=== PATIENT | female | born 1995 | race Caucasian/White ===

== ENCOUNTER 2023-09-10 13:20 | Outpatient (CLI) | payer MEDICAID, SELFPAY ==
--- NOTE | 2023-09-10 13:25 | CRLHL7_ITS ---
For Patients: As a result of the Century Cures Act, medical imaging exams and procedure reports are released immediately into your electronic medical record. You may view this report before your referring provider. If you have questions, please contact your health care provider. INDICATION: Vaginal bleeding. female with gestational age of 33 weeks 4 days. TECHNIQUE: Ultrasound OB pelvis transabdominal. Real-time whitney-scale imaging of the fetus was performed as well as color Doppler and spectral Doppler analysis of the umbilical artery. COMPARISON: None available. FINDINGS: Intrauterine gestation: Present. cardiac activity: 130 BPM. Presentation: Cephalic. Amniotic fluid volume: Borderline increased amniotic fluid volume with single deepest pocket measuring 8.2 cm. Amniotic fluid index measures 21.2 cm. Placenta: Anterior. Limited evaluation of the placenta is unremarkable. Cervix: Not measured. Please note that this examination is not a detailed anatomic survey. IMPRESSION.: Viable single intrauterine gestation with heart rate of 130 beats per minute. Borderline polyhydramnios as described. Dictated by Dana Edge MD @ 09/10/2023 2:37:06 PM (Electronically Signed)
[2023-09-10 13:39] VITALS: BP 115/71; PULSE 67; TEMP 36.6
[2023-09-10] MEDS: NIFEdipine 10 MG CAPSULE PO ×2 (14:36→14:58)
[2023-09-10] MEDS: BETAMETHASONE SOD PHOS/ACETATE 6 MG/ML ML 12 MG IM (14:37)
[2023-09-10 14:45] LABS: Yeast No Yeast Seen (None Seen)
[2023-09-10 14:46] LABS: Clue Cells <20% Clue Cells Seen (None Seen); Trichomonas No Trichomonas Seen (None Seen)
--- NOTE | 2023-09-10 14:47 | P.OBT_ITS ---
History of Present Illness History of Present Illness Date Seen: 09/10/23 History of Present Illness: 28 year old at 33 4/7 weeks gestation by certain LMP, JULIETTE 10/25/23, presents with vaginal bleeding. The patient was seen for transfer of obstetric care in the [facility] by physician's chemistry research assistant, Stacy Whaley. At that time, the patient complained of bright red vaginal bleeding. She had also had bright red vaginal bleeding last evening and was evaluated at [facility]. She states that they did a swab for AmniSure, but did not send it because the swab was bloody. She was monitored and subsequently sent home. She tells me that she has had intermittent brown spotting throughout the , and was told by a physician in [place] that she likely had a friable cervix. She does mention that she had intercourse yesterday morning. She is aware of contractions, she describes them as tightening without any real pattern. She describes the intensity as mild. Her fetus is active. Her past obstetric records were reviewed. This has been complicated by hyperemesis gravidarum. She gets regular IV fluid hydration and IV Zofran through a midline IV placed in her right arm. She had a normal growth ultrasound on 09/06/2023, with normal amniotic fluid volume. Estimated weight was in the sixtieth percentile. Growth ultrasounds are done regularly due to extended steroid use during the secondary to the hyperemesis. She also was diagnosed with gestational diabetes. 1 hour glucose screen was 152. 3 hour GTT values:100/157/165/106. She states that her blood sugars have been low, not high. She has also recently been diagnosed with yeast vaginitis, and completed two seven-day courses of Monistat cream. Baby moving naturally: Yes Bleeding: Yes Contractions: Yes Leaking fluid: No Discharge: No Heartburn: No Back pain: No Meds Home Medications and Allergies Home Medications Medication Instructions Recorded Confirmed Type ondansetron HCl 2 mg/mL 8 mg IM ONCE 09/10/23 09/10/23 History intravenous solution Allergies Allergy/AdvReac Type Severity Reaction Status Date / Time amitriptyline AdvReac Severe Depression Verified 09/10/23 12:50 PFSH Social History What is your current living situation?: I presently have a place to live Problems where you live: declined to answer In the past 12 months, utilities in danger of being shut off: no In past 12 months, lack of transportation kept you from medical appts, meetings, work, or getting things needed for daily living: no In the past 12 mos, have been you worried that your food would run out before you had money to buy more?: sometimes true In the past 12 mos, the food you bought just didn't last and you didn't have money to buy more?: sometimes true Smoking Status: Never smoker How often does anyone, including family, friends and others, physically hurt you : never How often does anyone, including family, friends and others, insult or talk down to you: sometimes How often does anyone, including family, friends and others, threaten you with harm: never How often does anyone, including family, friends and others, scream or curse at you: never Little interest or pleasure in doing things: several days Feeling down, depressed, or hopeless: several days History History 3 Elective abortions Para 2 Spontaneous abortions Hx # Term Pregnancies Ectopic pregnancies Hx # Pregnancies Multiple births Number of Living Children 2 Past Pregnancies Del. Date GA/Weeks Outcome Route wt Inf Gender Labor Lgth Anesthesia Location Provider Compli 10/14/13 41 live - full term vaginal delivery 6 lb 7 oz Female 5hrs none [place] other 07/22/21 37 live - full term vaginal delivery 6 lb 8 oz Femal e 6hrs intravenous analgesics [place] other Delivery Date: 10/14/13 Last Updated by: Ann Martin ~ [employer], [employer] pt had hyperemesis Delivery Date: 07/22/21 Last Updated by: Ann Martin ~ [employer], T[employer] pt had hyperemesis OB - H&P: Exam Physical Exam Vital signs: Temp Pulse BP 98 F 67 115/71 09/10/23 13:39 09/10/23 13:39 09/10/23 13:39 Constitutional Constitutional: no acute distress Routine HEENT Exam Head: Present normal inspection Routine Neck Exam Neck: Present full ROM Routine Respiratory Exam Respiratory: Present CTA bilaterally Routine Cardiovascular Exam Cardiovascular: RRR Routine Abdominal Exam Abdominal: Present soft; Absent tenderness Comments: Vertex presentation by Ruth Routine Exam External: Present normal external exam Comments: Sterile speculum exam: No fluid or blood noted in the vaginal vault. Clear mucus noted at the external cervical os. Cervix appears multiparous, no lesions. Bimanual exam: Cervix midposition, 2 cm dilated, approximately 50% effaced, vertex minus two station. Detailed Labor and Delivery Exam Patient Gravid: Yes Dilation (cm): 2 Effacement (%): 50 Cervix position: mid Consistency: medium Tachysystole: No Contraction intensity: Mild Fetus (Single) Station: -2 Heart Rate Baseline: 130 Monitor Accelerations: Present Monitor Decelerations: None Brick Baker Variability: Moderate (6-25) Routine Extremities Exam Extremities: Present normal inspection Results Labs Blood type a, Rh negative, RhoGAM reportedly administered on 09/06/2023, hemoglobin 14.3 on 03/06/2023, 11.0 on 08/06/2023, negative urine culture, Pap NIL, +HPV 10/27/2022, gonorrhea chlamydia screens negative, rubella immune, RPR nonreactive, hepatitis-B surface antigen nonreactive, HIV negative, varicella immune, 1 hour glucose screen 152, 3 hour GTT 100/157/165/106. Labs Laboratory Tests 09/10/23 09/10/23 Range/Units 14:40 14:22 WBC Pending RBC Pending Hgb Pending Hct Pending MCV Pending MCH Pending MCHC Pending Plt Count Pending Neut % (Auto) Pending Lymph % (Auto) Pending [place] % (Auto) Pending Eos % (Auto) Pending Baso % (Auto) Pending Neut # (Auto) Pending Lymph # (Auto) Pending [place] # (Auto) Pending Eos # (Auto) Pending Baso # (Auto) Pending Vaginal Trichomonas No Trichomonas Seen (None Seen) Vaginal Yeast No Yeast Seen (None Seen) Vaginal Clue Cells <20% Clue Cells Seen (None Seen) Group B Strep DNA Pending Ultrasound Ultrasound Impression: [address] [address] Diagnostic Imaging Report Patient: Juliet Vigil MR#: [id number] : 1995 Acct:[id number] Loc: [id number] Service Date: 09/10/[address]: Katya Kaur M.D. Ordering Physician: Katya Kaur M.D. Date of Service: 09/10/23 Procedure(s): US OB limited Accession Number(s): [id number] cc: Provider,Not a Local; Katya Kaur M.D.~ For Patients: As a result of the Cures Act, medical imaging exams and procedure reports are released immediately into your electronic medical record. You may view this report before your referring provider. If you have questions, please contact your health care provider. INDICATION: Vaginal bleeding. female with gestational age of 33 weeks 4 days. TECHNIQUE: Ultrasound OB pelvis transabdominal. Real-time whitney-scale imaging of the fetus was performed as well as color Doppler and spectral Doppler analysis of the umbilical artery. COMPARISON: None available. FINDINGS: Intrauterine gestation: Present. cardiac activity: 130 BPM. Presentation: Cephalic. Amniotic fluid volume: Borderline increased amniotic fluid volume with single deepest pocket measuring 8.2 cm. Amniotic fluid index measures 21.2 cm. Placenta: Anterior. Limited evaluation of the placenta is unremarkable. Cervix: Not measured. Please note that this examination is not a detailed anatomic survey. IMPRESSION.: Viable single intrauterine gestation with heart rate of 130 beats per minute. Borderline polyhydramnios as described. Dictated by Dana Edge MD @ 09/10/2023 2:37:06 PM (Electronically Signed) Assessment and Plan Assessment and plan (1) with third trimester bleeding: Status: Acute (2) labor: Status: Acute (3) Hyperemesis affecting , antepartum: Problem comment: IV fluids twice weekly with IV Zofran, prolonged prednisone treatment Status: Acute Plan 1. The patient has received IV fluid hydration and two doses of nifedipine 10 mg orally. 2. Betamethasone mg IM was administered. The patient understands that she should have another dose in 24 hours. 3. GBS swab was obtained, and is pending. 4. Wet prep was obtained, and is pending. 5. The patient has cervical change, in association with cervical dilation and bloody show. This is worrisome for labor. [facility] does not have a intensive care unit, and therefore transfer to a tertiary medical center is indicated for further evaluation and treatment. I spoke with Dr. Thomason at [facility], who is willing to accept care. The patient will be transferred to [place] by ambulance to [facility].
[2023-09-10 14:52] LABS: Basophils Percent Auto 0.1 % (0.0-3.0); Eosinophils Percent Auto 0.4 % (0.0-7.0); Hematocrit 34.5 % (33.0-51.0); Hemoglobin* 11.5 gm/dL (12.0-16.0); Immature Granulocytes Pct Auto 0.9 %; Lymphocytes Percent Auto 16.4 % (20-44); Mean Corpuscular HGB Conc 33 gm/dL (32-36); Mean Corpuscular Hemoglobin 30 pg (26-34); Mean Corpuscular Volume 91 fL (80-100); Monocytes Percent Auto 5.6 % (0.0-11.0); Neutrophils Percent Auto 76.6 % (42.0-72.0); Platelet Count* 312 K/uL (140-440); RDW Coefficient of Variation % 13.1 % (11.5-15.5)
[2023-09-10 15:10] LABS: Slide Review Reflex No
[2023-09-10 15:26] VITALS: BP 114/64; PULSE 98
--- NOTE | 2023-09-10 16:22 | PC.OBNST ---
NST Note NST Note Start: 09/10/23 13:26 Freq: ONCE Status: Discharge Protocol: Document 09/10/23 16:20 JULIET (Rec: 09/10/23 16:22 JULIET [id number]) NST Note 3 Para (# of births) 2 EDC 10/25/23 Gestational Age In Weeks & Days 33 Weeks & 4 Days High Risk Factors Diabetes - Gestational Insulin Patient Presented with Complaint(s) of Vaginal bleeding Reactive Yes Appropriate for Gestational Age Yes RN Anjana Lobato, RN Date 09/10/23 Reactive Yes Appropriate for Gestational Age Yes MANA Powers, MANAC Date 09/10/23 OB NST charge Yes Complete NST Note via Write Note Yes The provider's electronic signature indicates the NST is reactive/appropriate for gestational age. *Note to provider: If an addendum is required, open the patient's chart and click on the note under the Nurse/Allied Health tab.
[2023-09-11 11:58] LABS: Strep B DNA Probe Negative (Negative)
[2023-09-11 12:19] LABS: Strep B Susceptibility Needed? No
== END 2023-09-10 15:33 | disposition home or self-care (01) ==
LOC: OB OUT 13:21 → OB 13:22
PROVIDERS: Visit Provider Obstetrics & Gynecology
DX: O46.93 Antepartum hemorrhage, unspecified, third trimester (principal); Z3A.33 33 weeks gestation of pregnancy
CPT/HCPCS: 36415; 59025; 76815; 85025; 86850; 86870; 86880; 86900; 86901; 87081; 87210; 87653; G0463; A9270; J0702

== ENCOUNTER 2023-09-10 15:35 | Outpatient (CLI) | payer MEDICAID, SELFPAY | END 2023-09-10 15:36 | disposition home or self-care (01) | LOC: AMB 09-26 01:08 | PROVIDERS: Visit Provider Emergency Medicine | DX: O60.03 Preterm labor without delivery, third trimester (principal); Z3A.33 33 weeks gestation of pregnancy | CPT/HCPCS: A0425; A0428 ==

== ENCOUNTER 2025-05-26 08:53 | Emergency (ER) | payer MEDICAID, SELFPAY ==
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
[2025-05-26 08:59] VITALS: BP 100/60; PULSE 69; RESP 16; TEMP 36.8; O2SAT 97; BMI 21.8
--- NOTE | 2025-05-26 09:18 | ED_ITS ---
HPI - Abdominal Pain General Time Seen by Provider: 09:21 Date Seen: 05/26/25 Chief Complaint: Abdominal Pain Stated Complaint: gallstones Time Seen by Provider: 05/26/25 09:18 Source: patient, RN notes reviewed and old records reviewed Mode of arrival: ambulatory Limitations: no limitations History of Present Illness HPI narrative: This 30-year-old female is coming into the ER today with ongoing abdominal discomfort. She is having abdominal pain. She states she was diagnosed with gallstones and inflammation in the intestines yesterday. Impression of her CT from [place] [address] ED visit is below. She notes that she is had night sweats for months at night, has not noted fevers. She has had intermittent problems with nausea and vomiting for months, has had diarrhea issues for years. She states her symptoms really did get worse after the delivery of her last son. She has had a tubal ligation and LEEP in October. She was in the ED yesterday because of her symptoms. She is still getting her menstrual cycles regularly. Denies any history narcotic use or illicit substance use. She states that she did not get any medicines yesterday, her discharge recommended Tylenol and ibuprofen. She was recommended to follow up in 3-5 days. She has never had a colonoscopy. She is not aware of any family history of inflammatory bowel disease. She states someone has told her in the past that she had irritable bowel syndrome. She notes no blood in stool, melena at this time. She states there has been times in there has maybe been a little blood in stool but it is nothing consistent or concerning. She will note mucus in her stools at times. Patient notes generalized abdominal pain usually. IMPRESSION: 1. Short-segment mural hyperenhancement of the nondilated fluid-filled terminal ileum consistent with nonspecific terminal ileitis. 2. No other findings to explain the history of acute onset nonfocal abdominal pain as stated in the indication for the exam. 3. Suspected (possible) cholelithiasis. Otherwise unremarkable gallbladder. No sign of acute cholecystitis. Normal appendix. Dominant right ovarian follicle, for which no further workup is indicated. Small volume pelvic free fluid within physiologic limits of normal. Related Data Home Medications ?Medication ?Instructions ?Recorded ?Confirmed No Known Home Medications 05/26/2505/04 Allergies Allergy/AdvReac Type Severity Reaction Status Date / Time amitriptyline AdvReac Severe Depression Verified 10/01/23 12:35 Review of Systems Status of ROS Reports: 6 or more systems reviewed and unremarkable except as noted in History and below PFSH PFS Social History What is your current living situation?: I presently have a place to live Problems where you live: declined to answer In the past 12 months, utilities in danger of being shut off: no In past 12 months, lack of transportation kept you from medical appts, meetings, work, or getting things needed for daily living: no In the past 12 mos, have been you worried that your food would run out before you had money to buy more?: sometimes true In the past 12 mos, the food you bought just didn't last and you didn't have money to buy more?: sometimes true Smoking Status: Never smoker Do you use any of these nicotine containing products: None Second hand tobacco smoke exposure: No How often do you have a drink containing alcohol: never AUDIT-C Alcohol total score: 0 Non-prescribed substance use: marijuana (any form) Non-prescribed substance use details: for pain last used 05/25/2025 before bed How often does anyone, including family, friends and others, physically hurt you : never How often does anyone, including family, friends and others, insult or talk down to you: sometimes How often does anyone, including family, friends and others, threaten you with harm: never How often does anyone, including family, friends and others, scream or curse at you: never service: No Health Related Social Needs: food insecurity (Z59.41) and Other personal risk factors, not elsewhere classified (Z91.89) Exam Const: Vital Signs, click to edit/add: Vital Signs - 24 hr 05/26/25 08:59 Temperature 98.3 F Pulse Rate [Pulse Oximeter] 69 Respiratory Rate 16 Blood Pressure [Ri ght Upper Arm] 100/60 Pulse Oximetry 97 Oxygen Delivery Me thod Room Air This 30-year-old female is alert, interactive, no apparent distress, lying in the bed in exam room to. Sclera clear face atraumatic, speech normal. Lungs clear, no wheezing or crackles, no tachypnea. CV regular rate and rhythm, no murmur. Abdomen has normal bowel sounds, is soft, flat, not distended. She really has no rebound or guarding, no organomegaly, no masses noted. Documenting provider has reviewed patient's vital signs: yes Course Course ED Course: Looking at her workup yesterday with a terminal ileitis in her examination today combined with her history, suspect this patient may have inflammatory bowel disease. Will recheck labs today, give her some IV fluids, try some IV Toradol. If her labs are reassuring as far as white count, no changes in chemistries, doubt that gallbladder issues are her problem. She may need colonoscopy, will see where her inflammatory markers are. At this time her abdominal exam is reassuring, she does have terminal ileitis on her CT scan. Do not think we need to repeat any imaging here today based on clinical examination but will also look at labs to make sure they are stable. Reevaluation(s) Time of Reevaluation #1: 10:40 Reevaluation #1: Outside of patient sed rate, her labs are reassuring. Her hemoglobin yesterday was 12.1. Her urinalysis only showed 3-5 red blood cells and had many epithelial cells, believe this likely to be contamination. Do not feel we need a repeat urinalysis, do not feel we need any repeat imaging at this time. She would like to proceed with colonoscopy and EGD. She wants to follow-up in [facility]. We will try to get a follow-up appointment with primary care for about 2 weeks out, this should give ample time for the colonoscopy and EGD to be done. Consultations Consultation #1: Did speak with Dr. Cruz general surgery on-call. Reviewed the case with her. She does agree that doing both EGD and colonoscopy would be appropriate next step. She does feel that the patient certainly can be scheduled through our system. She does agree with no narcotic pain management in the interim. She also would like patient to get scheduled to have a follow-up with her primary care after her scopes are done so she has a medical home to follow-up with. Time: 10:27 Vital Signs Vital signs: Initial Vital Signs Temperature 98.3 F 05/26/25 08:59 Temperature Source Temporal Artery Scan 05/26/25 08:59 Pulse Rate 69 05/26/25 08:59 Respiratory Rate 16 05/26/25 08:59 Blood Pressure 100/60 09/24/25 08:59 Blood Pressure Mean 73 05/26/25 08:59 Blood Pressure Position Sitting 05/26/25 08:59 Pulse Oximetry 97 05/26/25 08:59 Oxygen Delivery Method Room Air 05/26/25 08:59 Vital Signs Temperature 98.3 F 05/26/25 08:59 Pulse Rate 69 05/26/25 08:59 Respiratory Rate 16 05/26/25 08:59 Blood Pressure 100/60 05/26/25 08:59 Pulse Oximetry 97 05/26/25 08:59 Oxygen Delivery Method Room Air 05/26/25 08:59 Temperature 98.3 F 05/26/25 08:59 Pulse Rate 69 05/26/25 08:59 Respiratory Rate 16 05/26/25 08:59 Blood Pressure 100/60 05/26/25 08:59 Pulse Oximetry 97 05/26/25 08:59 Oxygen Delivery Method Room Air 05/26/25 08:59 Medications Administered Medications: Discontinued Medications Generic Name Dose Route Start Last Admin Trade Name Álvaro PRN Reason Stop Dose Admin Sodium Chloride 1,000 mls @ 500 mls/hr 05/26/25 09:30 05/26/25 10:01 0.9 % Sodium Chloride 1000 Ml IV 05/26/25 11:29 500 mls/hr .Q2H TERESA Administration Ketorolac Tromethamine 15 mg 05/26/25 09:30 05/26/25 09:44 Ketorolac 15 Mg/Ml Inj IVP 05/26/25 09:31 15 mg ONCE ONE Administration MDM - Abdominal Pain Lab Data Attestation: I reviewed the patient's lab results. Labs: Lab Results 05/26/25 Range/Units Unknown WBC 6.06 (4.50-11.00) K/uL RBC 4.26 (4.00-5.20) m/uL Hgb 11.7 L (12.0-16.0) gm/dL Hct 36.1 (33.0-51.0) % MCV 85 (80-100) fL MCH 28 (26-34) pg MCHC 32 (32-36) gm/dL RDW Coeff of Jannette 13.6 (11.5-15.5) % Plt Count 347 (140-440) K/uL Neut % (Auto) 64.3 (42.0-72.0) % Lymph % (Auto) 26.6 (20-44) % [place] % (Auto) 7.6 (0.0-11.0) % Eos % (Auto) 1.0 (0.0-7.0) % Baso % (Auto) 0.3 (0.0-3.0) % Neut # (Auto) 3.90 (1.7-7.0) K/uL Lymph # (Auto) 1.61 (0.90-2.90) K/uL [place] # (Auto) 0.50 (0.00-0.90) K/UL Eos # (Auto) 0.06 (0.00-0.50) K/uL Baso # (Auto) 0.02 (0.00-0.30) K/uL Abs Immat Gran (auto) 0.01 (0.00-0.30) K/uL Imm/Tot Granulo (auto) 0.2 % ESR 5 (2-20) mm/hr Sodium 137 (135-149) mmol/L Potassium 4.4 (3.6-5.1) mmol/L Chloride 109 (96-114) mmol/L Carbon Dioxide 24 (20-32) mmol/L Anion Gap 4 L (7-15) mEq/L BUN 10 (5-24) mg/dL Creatinine 0.6 (0.5-1.5) mg/dL Estimated Creat Clear 108.43 Estimated GFR 124 ml/min Glucose 97 (60-115) mg/dL Lactate 0.6 (0.5-1.9) mmol/L Calcium 8.6 (8.4-10.6) mg/dL Total Bilirubin 0.4 (0.1-1.5) mg/dL Direct Bilirubin 0.1 (0.0-0.5) mg/dL AST 22 (12-35) U/L ALT 11 (4-35) U/L Alkaline Phosphatase 40 (40-150) U/L C-Reactive Protein < 0.5 L (0.5-1.0) mg/dL Total Protein 6.7 (6.0-8.3) g/dL Albumin 4.0 (3.3-5.0) g/dL Lipase 90 (23-300) U/L Discharge Plan Discharge Clinical Impression: Abdominal pain Qualifiers: Abdominal location: generalized Qualified Code(s): R10.84 - Generalized abdomin al pain Terminal ileitis of small intestine Qualifiers: Digestive disease complication type: without complication Qualified Code(s): K50.00 - Crohn's disease of small intestine without complications Patient Disposition: Home, Self-Care Condition: Stable Instructions: Abdominal Pain (ED) Additional Instructions: Follow up appointment is scheduled with Dr. Sher at the [facility] on 06/07 with a 10:30am appointment time. Please arrive at 10:15am to complete paperwork. If you have any questions or need to reschedule, please call [phone]. (He is part of the [facility] system) [facility] [address] [place] [address] You will be contacted by endoscopy clinic to get scheduled for the EGD and colonoscopy. Can use Tylenol 1000 mg 3 times a day and ibuprofen per bottle directions as needed for pain management. Activity Level: Activity as Tolerated Prescriptions: No Action No Known Home Medications Follow Up/Referrals: Provider,Not a Local [Primary Care Provider, Family Practice] Stand Alone Forms: App in the [employer] Info Instructions
--- OUTSIDE RECORDS SUMMARY | 2025-05-26 09:52 | XMS_ITS | Encounter Summary ---
Author Organization [facility] Address [address] [place] [address] Care Team Providers Care Pot Builder Name Role Phone Alison Wolf APRN, C.N.P., D.N.P. P [facility] Care Provider Reason for Visit * Reason Onset Date Comments Blood in Urine 05/25/2025 Encounter Details Date Type Department Care Team (Late st Contact Info) Description 05/25/2025 Nurse Triage Department of Family Medicine, [facility], in [place], [place] [address] [place] [id number] Magaly Alba RRodolfo [address] [place] [phone] Blood in Urine Social History Tobacco Use Types Packs/Day Years Used Date Smoking Tobacco: Never Passive Smoke Exposure: Never Smokeless Tobacco: Never Alcohol Use Standard Drinks/Week Comments Not Currently 0 (1 standard drink = 0.6 oz pur e alcohol) [facility] Utilities Answer Date Recorded In the past 12 months has [employer], oil, or water [employer] threatened to shut off services in your home? No 10/12/2024 Humiliation, Afraid, Rape, and Kick questionnair e Answer Date Recorded Within the last year, have y ou been afraid of your partner or ex-partner? No 09/11/2023 Within the last year, have y ou been humiliated or emotionally abused in other ways by your partner or ex-partner? No Within the last year, have y ou been kicked, hit, slapped, or otherwise physically hurt by your partner or ex-partner? No 09/11/2023 Within the last year, have y ou been raped or forced to have any kind of sexual activity by your partner or ex-partner? No 09/11/2023 Hunger Vital Sign Answer Date Recorded Within the past 12 months, y ou worried that your food would run out before you got the money to buy more. Never true 10/12/19 25 Within the past 12 months, t he food you bought just didn't last and you didn't have money to get more. Never true 10/12/2024 PRAPARE - Transportation Answer Date Re corded In the past 12 months, has l ack of transportation kept you from medical appointments or from getting medications? No 10/03 In the past 12 months, has l ack of transportation kept you from meetings, work, or from getting things needed for daily living? No 10/12/2024 Depression Answer Date Recor ded PHQ-9 Total Score (max 27) 19 10/12 Housing Stability Answer Date Recorded What is your living situation today? I have a [facility] place to live 10/12/2024 Education Answer Date Recorded What is the highest level of school you have completed or the highest degree you have received? 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 - 05/25/2025 9:10 AM CDT Chief Complaint / Reason for Call Patient is a 30 y.o. female calling regarding Blood in Urine. Assessment Concern: Juliet is calling for an appointment in [place] today, since she in town for work. She has noticed that she is peeing blood, but it is light and pink in the toilet and on the Toilet paper. She has pain in her stomach. She had a surgery in October, and had a LEEP procedure, and ever since then she has had issues. 6.5/10 pain when sitting, standing pain is 8/10. She will feel faint sometimes due to the pain. Present for: 24 hours. Calling to request: appointment The recommended disposition is See a health care provider within 24 hours. Patient provided education on options if no clinic access is available within the recommended timeframe to include local Urgent Care or Emergency Department. Patient verbalizes understanding of this. Patient provided education on options if no clinic access is available within the recommended timeframe to include local Urgent Care or Emergency Department. Patient verbalizes understanding of this. 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 Reason for Disposition Blood in urine (Exception: Could be normal menstrual bleeding.) Side (flank) or back pain present Protocols used: Urine - Blood In-Adult- Care Advice Patient/Caregiver understands and will follow care advice?: Yes, able to teach back [facility] Magaly Alfaro May 25, 2025 09:18 AM Care Advice DRINK EXTRA FLUIDS: * Drink extra fluids. * Drink 8 to 10 cups (1,800 to 2,400 ml) of liquids a day. * Reason: This will water-down your urine and make it less painful to pass. It will also help wash out any germs that may be in your bladder. documented in this encounter Plan of Treatment Upcoming Encounters Date Type Department Care Team (Late st Contact Info) Description 06/16/2025 2:30 PM CDT Comprehensive Visit Department of Family Medicine, [facility], in [place], [place] [address] [phone] Pricila Jernigan APRN, C.N.P., D.N.P. 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 [address] [place] [phone] PCP - General 02/07/24 documented as of this encounter
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
[2025-05-26 09:56] LABS: Lactate* 0.6 mmol/L (0.5-1.9)
[2025-05-26 09:57] LABS: Hematocrit* 36.1 % (33.0-51.0); Hemoglobin* 11.7 gm/dL (12.0-16.0); Immature Granulocytes Abs Auto 0.01 K/uL (0.00-0.30); Immature Granulocytes Pct Auto 0.2 %; Lymphocytes Absolute Auto 1.61 K/uL (0.90-2.90); Mean Corpuscular HGB Conc 32 gm/dL (32-36); Mean Corpuscular Hemoglobin 28 pg (26-34); Mean Corpuscular Volume 85 fL (80-100); RDW Coefficient of Variation % 13.6 % (11.5-15.5); Red Blood Count* 4.26 m/uL (4.00-5.20); White Blood Count* 6.06 K/uL (4.50-11.00)
[2025-05-26 09:58] LABS: Slide Review Reflex No
[2025-05-26 10:13] LABS: Albumin* 4.0 g/dL (3.3-5.0); Chloride* 109 mmol/L (96-114); Sodium* 137 mmol/L (135-149)
[2025-05-26 10:14] LABS: Potassium* 4.4 mmol/L (3.6-5.1)
[2025-05-26 10:16] LABS: Alanine Aminotransferase* 11 U/L (4-35); Alkaline Phosphatase* 40 U/L (40-150); Anion Gap 4 mEq/L (7-15); Aspartate Amino Transferase* 22 U/L (12-35); Bilirubin Direct* 0.1 mg/dL (0.0-0.5); Bilirubin Total* 0.4 mg/dL (0.1-1.5); Blood Urea Nitrogen* 10 mg/dL (5-24); Calcium* 8.6 mg/dL (8.4-10.6); Carbon Dioxide* 24 mmol/L (20-32); Creatinine* 0.6 mg/dL (0.5-1.5); Est. Creatinine Clearance* 108.43; Estimated Glomerular Filt Rate 124 ml/min; Glucose* 97 mg/dL (60-115); Total Protein* 6.7 g/dL (6.0-8.3)
[2025-05-26 11:01] LABS: Erythrocyte SedimentationRate* 5 mm/hr (2-20)
== END 2025-05-26 11:51 | disposition home or self-care (01) ==
PROVIDERS: Emergency Provider Family Medicine
DX: K50.00 Crohn's disease of small intestine without complications (principal); R10.9 Unspecified abdominal pain
CPT/HCPCS: 36415; 80053; 82248; 83605; 83690; 85025; 85651; 86140; 99283; 99284; J1885; J7030

== ENCOUNTER 2025-05-31 11:11 | Outpatient (CLI) | payer MEDICAID, SELFPAY ==
--- NOTE | 2025-05-31 13:03 | P.ANES_ITS ---
Anesthesia Charges Start Date/Time Anesthesia Start Date: 05/31/25 Anesthesia Start Time: 12:26 Stop Date/Time Anesthesia Stop Date: 05/31/25 Anesthesia Stop Time: 13:03 Coding CPT Codes CPT Codes: ANES UPR LWR GI NDSC PX - 17341 ([id number]) P1 - NORMAL HEALTHY PATIENT, QK - WEARING APPAREL ASSEMBLER 2-4 CNCRNT ANES PROC, QX - SOLE CONFORMING MACHINE OPERATOR SVC W/ MED DIRECTION
--- NOTE | 2025-05-31 13:03 | W.ANESCHARGE ---
Anesthesia Charges Start Date/Time Anesthesia Start Date: 05/31/25 Anesthesia Start Time: 12:26 Stop Date/Time Anesthesia Stop Date: 05/31/25 Anesthesia Stop Time: 13:03 Coding CPT Codes CPT Codes: ANES UPR LWR GI NDSC PX - 91931 ([id number]) P1 - NORMAL HEALTHY PATIENT, QK - MILLINERY BLOCKER 2-4 CNCRNT ANES PROC, QX - IMAGE EDITOR SVC W/ MED DIRECTION
--- NOTE | 2025-05-31 13:05 | P.ANES_ITS ---
Anesthesia Charges Start Date/Time Anesthesia Start Date: 05/31/25 Anesthesia Start Time: 12:26 Stop Date/Time Anesthesia Stop Date: 05/31/25 Anesthesia Stop Time: 13:03 Coding CPT Codes CPT Codes: ANES UPR LWR GI NDSC PX - 21097 ([id number]) P1 - NORMAL HEALTHY PATIENT, QK - CHIEF OF INTERNAL MEDICINE 2-4 CNCRNT ANES PROC, QX - OVERLOCK SEWING MACHINE OPERATOR SVC W/ MED DIRECTION
--- NOTE | 2025-05-31 13:05 | W.ANESCHARGE ---
Anesthesia Charges Start Date/Time Anesthesia Start Date: 05/31/25 Anesthesia Start Time: 12:26 Stop Date/Time Anesthesia Stop Date: 05/31/25 Anesthesia Stop Time: 13:03 Coding CPT Codes CPT Codes: ANES UPR LWR GI NDSC PX - 37758 ([id number]) P1 - NORMAL HEALTHY PATIENT, QK - 2ND PRESSMAN 2-4 CNCRNT ANES PROC, QX - GARMENT EXAMINER SVC W/ MED DIRECTION
== END 2025-05-31 11:12 | disposition home or self-care (01) ==
LOC: OP CLINIC 11:12
PROVIDERS: Visit Provider Surgery
DX: R10.84 Generalized abdominal pain (principal)
CPT/HCPCS: 00813; 43239; 45380; 88305; J2704; J3490

== ENCOUNTER 2025-06-17 10:49 | Outpatient (CLI) | payer MEDICAID, SELFPAY ==
--- NOTE | 2025-06-17 10:45 | CRLHL7_ITS ---
For Patients: As a result of the Century Cures Act, medical imaging exams and procedure reports are released immediately into your electronic medical record. You may view this report before your referring provider. If you have questions, please contact your health care provider. INDICATION: Generalized abdominal pain. TECHNIQUE: Ultrasound abdomen complete. Sonographic images of the abdomen were obtained using whitney-scale and color Doppler images. COMPARISON: None. FINDINGS: Liver: Echogenicity of the liver parenchyma is within normal limits. The liver measures 15.0 cm. Bile ducts: Intrahepatic bile ducts are not dilated. The common bile duct measures 0.3 cm. Gallbladder: 0.4 cm gallbladder polyp at the neck. No significant gallbladder wall thickening or pericholecystic fluid. Negative sonographic Bravo`s sign. Pancreas: Pancreas is poorly visualized secondary to acoustic shadowing from overlying/adjacent bowel gas. Right kidney: The right kidney measures 10.4 cm in length. No renal calculi or significant hydronephrosis is identified. Left kidney: The left kidney measures 9.3 cm in length. No renal calculi or significant hydronephrosis is identified. Spleen: No splenomegaly. Spleen measures 8.8 cm. Visualized abdominal aorta: No aneurysmal dilation. Visualized IVC: Patent. IMPRESSION: 0.4 cm gallbladder polyp at the neck. No sonographic evidence of acute cholecystitis. Dictated by Seble Hernández MD @ 06/18/2025 2:03:10 AM (Electronically Signed)
== END 2025-06-17 10:50 | disposition home or self-care (01) ==
LOC: US 10:50
PROVIDERS: PCP Family Medicine; Visit Provider Family Medicine
DX: R10.84 Generalized abdominal pain (principal); K82.4 Cholesterolosis of gallbladder
CPT/HCPCS: 76700